=== PATIENT | male | born 1985 ===

== ENCOUNTER 2021-04-04 17:51 | Emergency (ER) | payer OTHER ==
[~2021-04-04] VITALS: Ht 167.6 cm; Wt 79.5 kg
[2021-04-04 19:31] VITALS: BP 113/64
== END 2021-04-04 19:32 ==
LOC: EMS 17:53
DX: F15.90 Other stimulant use, unspecified, uncomplicated (principal); E11.9 Type 2 diabetes mellitus without complications; F17.210 Nicotine dependence, cigarettes, uncomplicated
CPT/HCPCS: 93005; 99283